=== PATIENT | female | born 2000 | race Caucasian/White ===

== ENCOUNTER 2022-04-02 13:38 | Emergency (ER) | payer BC ==
[2022-04-02] MEDS ORDERED: Levalbuterol HCl 1.25 MG/3 ML Neb NEB ONE ×2 (13:42→14:39)
[2022-04-02] MEDS ORDERED: Ondansetron 4 MG/2 ML SDV IVPUSH ONE (13:45)
[2022-04-02] MEDS ORDERED: Acetaminophen 500 MG Tab PO ONE (14:38)
[2022-04-02] MEDS ORDERED: methylPREDNISolone Sodium Succinate 125 MG/2 ML SDV IVPUSH ONE (15:18)
[2022-04-02] MEDS ORDERED: Albuterol 0.083% 2.5 MG/3 ML Neb Soln NEB ONE (15:58)
[2022-04-02 16:15] LABS: CORONAVIRUS COVID-19 NAA NEGATIVE (NEGATIVE)
== END 2022-04-02 16:53 | disposition home or self-care (01) ==
LOC: JP.ED 13:38
DX: J45.41 Moderate persistent asthma with (acute) exacerbation (principal); Z20.822 Contact with and (suspected) exposure to COVID-19
CPT/HCPCS: 0241U; 71046; 81025; 94640; 96374; 96375; 99285; A9270; J2405; J2930; J7612; 99282